=== PATIENT | male | born 1975 | race Caucasian/White ===

== ENCOUNTER 2022-12-13 09:28 | Outpatient (REF) | payer OTHER, SELFPAY ==
[2022-12-13 09:44] LABS: MANUAL DIFF FLAG NO
[2022-12-13 09:56] LABS: Basophils Percent Auto 0.7 % (0-2); Eosinophils Absolute Auto 0.1 X10*3/uL (0.0-0.4); Eosinophils Percent Auto 2.7 % (0-4); Hematocrit 47.3 % (42.0-52.0); Hemoglobin 15.7 g/dl (14.0-18.0); Imm Gran Abs Auto 0.02 X10*3/uL (0.00-0.03); Imm Gran Pct Auto 0.5 % (0.0-0.4); Lymphocytes Absolute Auto 1.3 X10*3/uL (1.2-4.9); Mean Corpuscular HGB Conc 33.2 g/dl (31.0-36.0); Mean Corpuscular Hemoglobin 26.7 pg (27.0-33.0); Mean Corpuscular Volume 80.3 fL (80.0-98.0); Mean Platelet Volume 10.7 fL (9.4-12.4); Monocytes Absolute Auto 0.5 X10*3/uL (0.1-1.2); Monocytes Percent Auto 12.1 % (2-11); Neutrophils Absolute Auto 2.2 x10*3/uL (2.0-8.3); Platelet Count 240 X10*3/uL (160-400); Red Blood Count 5.89 X10*6/uL (4.60-5.80); Red Cell Distribution Width 13.3 % (11.0-16.0); White Blood Count 4.1 X10*3/uL (4.8-10.8)
[2022-12-13 10:20] LABS: Estimated Average Glucose 117 mg/dL; Hemoglobin A1C 152.1611 umol/L; Hemoglobin A1c % 5.7 %
[2022-12-13 10:54] LABS: Alanine Aminotransferase 66 U/L (0-40); Albumin Level 4.2 g/dL (3.5-5.0); Alkaline Phosphatase 91 U/L (39-117); Anion Gap 12 (12-20); Aspartate Amino Transferase 41 U/L (5-37); Bilirubin Total 1.1 mg/dL (0.0-1.0); Blood Urea Nitrogen 11 mg/dL (9-16); Calcium 8.4 mg/dL (8.4-10.2); Carbon Dioxide 26 mmol/L (22-29); Chloride 107 mmol/L (96-108); Cholesterol 197 mg/dL; Estimated Glomerular Filt Rate > 60; Glucose Random 114 mg/dL (60-115); HDL Cholesterol 41 mg/dL; LDL Cholesterol Calculated 137 mg/dl; Potassium 4.5 mmol/L (3.3-5.1); Sodium 140 mmol/L (135-145); Triglycerides 98 mg/dL
[2022-12-13 11:23] LABS: Folate 10.3 ng/mL (> or = 4.0); Free T4 (Free Thyroxine) 0.87 ng/dL (0.71-1.85); Thyroid Stimulating Hormone 1.51 uIU/mL (0.32-4.0); Vitamin B12 445 pg/mL (200-900)
[2022-12-14 18:28] LABS: Lyme Abs Screen <0.90 index
== END 2022-12-13 09:29 | disposition home or self-care (01) ==
LOC: HO.LAB 09:28
PROVIDERS: PCP Internal Medicine; Visit Provider Internal Medicine
DX: E66.01 Morbid (severe) obesity due to excess calories (principal); E78.00 Pure hypercholesterolemia, unspecified; Z86.19 Personal history of other infectious and parasitic diseases; E55.9 Vitamin D deficiency, unspecified
CPT/HCPCS: 36415; 80053; 80061; 82306; 82607; 82746; 83036; 84439; 84443; 85025; 86617; 86618

== ENCOUNTER 2024-05-29 11:23 | Outpatient (AMB) | payer OTHER, SELFPAY ==
[2024-05-29 11:27] VITALS: BP 148/98; PULSE 84; O2SAT 98; BMI 42.6
--- NOTE | 2024-05-29 11:27 | A.OFFPC_ITS ---
Vital Signs 05/29/24 11:27 Height 5 ft 10 in Weight 297 lb BMI 42.6 BP 148/98 H Blood Pressure Location Lt brachial Position Sitting Pulse 84 Pulse Source Pulse Oximeter Pulse Oximetry (%) 98 Oxygen Delivery Method Room Air Intake Visit Reasons: Annual PE Allergies No Known Allergies Allergy (Verified 05/29/24 11:28) Medication List - Last Reconciled 05/29/24 by Cristobal Mcconnell MD blood pressure monitor (Blood Pressure Kit) As directed Tobacco use date assessed: 05/29/24 Dental Screening Dental Screen Date: 05/29/24 Did you have a dental visit in the last 12 months?: Yes Did you have a dental problem in the last 6 months where you did not have access to dental care?: No Was dental information given to patient?: Patient has dentist HPI Annual PE HPI Details 48-year-old morbidly obese male coming i n for physical exam at that t [facility] in December last year had an elevated blood pressure. Patient is here for physical exam [facility] Medical History (Updated 05/29/24 @ 12:09 by Cristobal Mcconnell MD) Morbid obesity Surgical History (Updated 07/31/20 @ 12:18 by Rasheead Kim) History of eye surgery Family History (Updated 12/02/22 @ 10:53 by Kate Castorena [facility]) Father No problems noted. Mother Diabetes Maternal Grandfather Diabetes Sister No problems noted. Sister No problems noted. Brother No problems noted. Son No problems noted. Daughter No problems noted. Other Substance abuse Social History (Updated 12/02/22 @ 10:47 by Cristobal Mcconnell MD) Housing: House Alcohol intake: never Patient Tobacco Use Status: Former Tobacco user Tobacco use type: Cigarette Years Smoked: 16 years old for 4 years e-Cigarette/Vaping Use: Never Used Second Hand Smoke Exposure: No service: No Current occupational status: employed Current occupational exposures/hazards: No Cognitive needs: No Hearing needs: No Vision needs: Yes Questionnaire PHQ-9 Over the last 2 weeks, how often have you been bothered by any of the following problems? 1. Little interest or pleasure in doing things: not at all 2. Feeling down, depressed, or hopeless: not at all 3. Trouble falling or staying asleep, or sleeping too much: not at all 4. Feeling tired or having little energy: not at all 5. Poor appetite or overeating: not at all 6. Feeling bad about yourself - or that you are a failure or have let yourself or your family down: not at all 7. Trouble concentrating on things, such as reading the newspaper or watching television: not at all 8. Moving or speaking so slowly that other people could have noticed. Or the opposite - being so fidgety or restless that you have been moving around a lot more than usual: not at all Depression Screening Interpretation: Negative Depression Screening Done: Yes 93480 - PHQ-9 Billing: Yes Source: Developed by Drs. Elio Noble, Larisa Cao, Jerad Youssef and colleagues, with an educational melida from [employer]. Thrive Questionnaire Date Thrive assessed: 05/29/24 I am a: Patient What is your living situation today?: I have a steady place to live Within the past 12 months, did the food you bought not last and you didn't have the money to get more?: Never true Within the past 12 months, did you worry whether your food would run out before you got money to buy more?: Never true Do you have trouble paying for medicines?: No Do you have trouble getting transportation to medical appointments?: No Do you have trouble paying your heating and electricity bill?: No Do you have trouble taking care of your child, family member or friend?: No Do you have trouble with day-to-day activities such as bathing, preparing meals, shopping, managing finances, etc.?: No Are you currently unemployed and looking for a job?: No Are you interested in more education?: No Currently or been in a relationship where the following occur: No concerns reported THRIVE Score: 0 AUDIT C Alcohol Use Questionnaire (AUDIT-C) 1. How often do you have a drink containing alcohol?: Never 3. How often do you have six or more drinks on one occasion?: Never Total Score: 0 ANJALI-7 AMB Questionnaire ANJALI-7 Date ANJALI - 7 assessed: 05/29/24 Feeling nervous, anxious, or on edge: 1 = Several days Not being able to stop or control worryin = Several days Worrying too much about different things: 1 = Several days Trouble relaxin = Several days Being so restless that it is hard to sit still: 1 = Several days Becoming easily annoyed or irritable: 1 = Several days Feeling afraid as if something awful might happen: 1 = Several days Total ANJALI-7 score (0-4 normal; 5-9 mild; 10-14 moderate; 15-21 severe): 7 Source: Developed by Drs. Elio Noble, Larisa Cao, Jerad Youssef and colleagues, with an educational melida from [employer]. ANJALI-7 Assessment Billing ANJALI-7 Assessment Tool: ANJALI-7 Assessment 86240 Review of Systems Const Denies poor appetite and Denies weakness Eyes Denies no additional complaints ENT Reports Normal hearing present, Denies dizziness, Denies nasal congestion, Denies tinnitus and Denies sore throat Card Denies chest pain, Denies syncope, Denies rapid heart rate and Denies dyspnea Resp Denies cough and Denies dyspnea GI Denies change in stool character, Reports constipation, Denies diarrhea, Denies nausea and Denies vomiting Denies dysuria and Denies urinary frequency Neuro Reports Normal hearing present, Denies confusion, Denies dizziness, Denies syncope and Denies weakness Psych Denies confusion Physical exam (Primary Care) Vital Signs: Last Vital Signs Pulse 84 05/29/24 11:27 BP 148/98 H 05/29/24 11:27 Pulse Ox 98 05/29/24 11:27 Oxygen Delivery Method Room Air 05/29/24 11:27 BMI result Body Mass Index 42.6 Tobacco/Smoking Status: Tobacco use Status Tobacco use date assessed 05/29/24 05/29/24 11:34 Patient Tobacco Use Status Former Tobacco user 05/29/24 11:34 Tobacco use type Cigarette 05/29/24 11:34 e-Cigarette/Vaping Use Never Used 05/29/24 11:34 Depression Screening Interpretation: Negative Thrive Assessment: Date of Thrive Assessment Date Thrive assessed 05/29/24 05/29/24 11:34 Currently or been in a relationship where the following occur: No concerns reported Const General: No confusion Orientation/consciousness: No confusion HENMT Head: Yes normocephalic Ears: external ears normal and TM's normal bilaterally Face and sinus: Yes normal facial exam Mouth: moist mucous membranes Throat: Yes tonsils normal Eyes Conjunctivae: conjunctivae normal Pupils: Equal, round and reactive pupils present and Pupil accommodation reflex normal Direct Ophthalmoscopy: normal light reflex Neck Neck: No lymphadenopathy Thyroid: Thyroid normal Chest Chest palpation & inspection: normal inspection of the chest Resp Effort & Inspection: normal respiratory effort and no audible wheezes Auscultation: clear to auscultation bilaterally, no crackles, no wheezes and lung sounds not diminished Cardio Rate: regular rate Rhythm: regular rhythm Peripheral pulses: radial pulses present and dorsalis pedis present GI Palpation (GI): no masses Auscultation: normal bowel sounds and normoactive bowel sounds Rectal Exam - Male: Yes deferred Skin General skin exam: no rashes or lesions noted Rashes: no rashes Neuro General: No confusion Cranial nerves: Yes Equal, round and reactive pupils present and Yes Normal hearing present Cognition (Neuro): normal cognition Gait exam (Neuro): Normal gait present Motor exam (neuro): 5/5 motor strength present throughout Deep tendon reflexes (DTR's): Right brachioradialis reflex intensity grade: 2+, Left brachioradialis reflex intensity grade: 2+, Right patellar reflex intensity grade: 2+ and Left patellar reflex intensity grade: 2+ Extrem General: No edema Assessment and Plan Assessment & Plan (1) Annual physical exam: Code(s): Z00.00 - Encounter for general adult medical examination without abnormal findings Plan: Patient is advised to eat healthy, keep well hydrated, keep active and have adequate sleep. (2) LFT elevation: Code(s): R79.89 - Other specified abnormal findings of blood chemistry Plan: Will have to repeat the test with ultrasound of the abdomen (3) Impaired glucose tolerance: Code(s): R73.02 - Impaired glucose tolerance (oral) Plan: Decrease the amount of carbohydrate intake, pasta, bread, rice and potatoes are all sugar and that is aside from all the sweet stuff, remember that fruits are good but they are Sweet also. (4) Morbid obesity: Code(s): E66.01 - Morbid (severe) obesity due to excess calories Plan: Diet and exercise (5) Colon cancer screening: Code(s): Z12.11 - Encounter for screening for malignant neoplasm of colon Plan: Reminded about colonoscopy (6) Hypercholesterolemia: Code(s): E78.00 - Pure hypercholesterolemia, unspecified (7) Colonoscopy refused: Code(s): Z53.20 - Procedure and treatment not carried out because of patient's decision for unspecified reasons Orders: Orders Complete Blood Count Auto Diff Today R73.02 - Impaired glucose tolerance (oral) Lipid Panel Today E78.00 - Pure hypercholesterolemia, unspecified, R73.02 - Impaired glucose tolerance (oral) Vitamin B12 and Folate Today R73.02 - Impaired glucose tolerance (oral) US abdomen complete Today R73.02 - Impaired glucose tolerance (oral), R79.89 - Other specified abnormal findings of blood chemistry Hemoglobin A1c Today R73.02 - Impaired glucose tolerance (oral) Comprehensive Met. Panel Today R73.02 - Impaired glucose tolerance (oral) Thyroid Stimulating Hormone Today R73.02 - Impaired glucose tolerance (oral) Free T4 (Free Thyroxine) Today R73.02 - Impaired glucose tolerance (oral) Hepatitis B,C Profile Today R73.02 - Impaired glucose tolerance (oral), R79.89 - Other specified abnormal findings of blood chemistry Referrals Cologuard Test Z12.11 - Encounter for screening for malignant neoplasm of colon, Z12.12 - Encounter for screening for malignant neoplasm of rectum Coding Level of Care Code Est Pt Prev Care 40-64y(98840) Diagnoses Annual physical exam Z00.00 LFT elevation R79.89 Impaired glucose tolerance R73.02 Morbid obesity E66.01 Colon cancer screening Z12.11 Hypercholesterolemia E78.00 Colonoscopy refused Z53.20 Additional Codes ANJALI-7 Assessment Billing - ANJALI-7 Assessment Tool: ANJALI-7 Assessment [id number] ([id number])
== END 2024-05-29 12:28 | disposition home or self-care (01) ==
PROVIDERS: PCP Internal Medicine; Visit Provider Internal Medicine
DX: Z00.00 Encounter for general adult medical examination without abnormal findings (principal); E66.01 Morbid (severe) obesity due to excess calories; Z68.41 Body mass index [BMI] 40.0-44.9, adult; R79.89 Other specified abnormal findings of blood chemistry; R73.02 Impaired glucose tolerance (oral); Z12.11 Encounter for screening for malignant neoplasm of colon; E78.00 Pure hypercholesterolemia, unspecified; Z53.20 Procedure and treatment not carried out because of patient's decision for unspecified reasons
CPT/HCPCS: 99396

== ENCOUNTER 2024-12-28 10:20 | Outpatient (AMB) | payer OTHER, SELFPAY ==
[2024-12-28 10:23] VITALS: PULSE 80; TEMP 36.1; O2SAT 96; BMI 40.2
--- NOTE | 2024-12-28 10:23 | A.OFFPC_ITS ---
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 Ultrasound Technol Required: No Accompanied by: Self / Same As Patient Allergies No Known Allergies Allergy (Verified 12/28/24 10:30) Medication List - Last Reconciled 12/28/24 by Cristobal Mcconnell MD blood pressure monitor (Blood Pressure Kit) As directed Tobacco use date assessed: 12/28/24 Dental Screening Dental Screen Date: 12/28/24 Did you have a dental visit in the last 12 months?: Yes Did you have a dental problem in the last 6 months where you did not have access to dental care?: No Was dental information given to patient?: Patient has dentist HPI DOT/SLEEP STUDY REQUEST HPI Details DEny sleepy while driving, deny sleeping while watching tv, deny after meal sleepy, deny sleeping in the car, deny afternoon sleeping. [facility] Medical History (Updated 12/27/24 @ 16:04 by Cristobal Mcconnell MD) Morbid obesity Surgical History History of eye surgery Family History Father No problems noted. Mother Diabetes Maternal Grandfather Diabetes Sister No problems noted. Sister No problems noted. Brother No problems noted. Son No problems noted. Daughter No problems noted. Other Substance abuse Social History Housing: House Alcohol intake: never Patient Tobacco Use Status: Former Tobacco user Tobacco use type: Cigarette Years Smoked: 16 years old for 4 years e-Cigarette/Vaping Use: Never Used Second Hand Smoke Exposure: No service: No Current occupational status: employed Current occupational exposures/hazards: No Cognitive needs: No Hearing needs: No Vision needs: Yes Questionnaire PHQ-9 Over the last 2 weeks, how often have you been bothered by any of the following problems? 1. Little interest or pleasure in doing things: not at all 2. Feeling down, depressed, or hopeless: not at all 3. Trouble falling or staying asleep, or sleeping too much: not at all 4. Feeling tired or having little energy: not at all 5. Poor appetite or overeating: not at all 6. Feeling bad about yourself - or that you are a failure or have let yourself or your family down: not at all 7. Trouble concentrating on things, such as reading the newspaper or watching television: not at all 8. Moving or speaking so slowly that other people could have noticed. Or the opposite - being so fidgety or restless that you have been moving around a lot more than usual: not at all Depression Screening Interpretation: Negative Depression Screening Done: Yes 03582 - PHQ-9 Billing: Yes Source: Developed by Drs. Elio Noble, Larisa Cao, Jerad Youssef and colleagues, with an educational melida from [employer]. Thrive Questionnaire Date Thrive assessed: 12/28/24 I am a: Patient What is your living situation today?: I have a steady place to live Within the past 12 months, did the food you bought not last and you didn't have the money to get more?: Never true Within the past 12 months, did you worry whether your food would run out before you got money to buy more?: Never true Do you have trouble paying for medicines?: No Do you have trouble getting transportation to medical appointments?: No Do you have trouble paying your heating and electricity bill?: No Do you have trouble taking care of your child, family member or friend?: No Do you have trouble with day-to-day activities such as bathing, preparing meals, shopping, managing finances, etc.?: No Are you currently unemployed and looking for a job?: No Are you interested in more education?: No Currently or been in a relationship where the following occur: No concerns reported THRIVE Score: 0 AUDIT C Alcohol Use Questionnaire (AUDIT-C) 1. How often do you have a drink containing alcohol?: Monthly or less 2. How many drinks containing alcohol do you have on a typical day when you are drinking?: 1 or 2 3. How often do you have six or more drinks on one occasion?: Never Total Score: 1 ANJALI-7 AMB Questionnaire ANJALI-7 Date ANJALI - 7 assessed: 12/28/24 Feeling nervous, anxious, or on edge: 0 = Not at all Not being able to stop or control worryin = Not at all Worrying too much about different things: 0 = Not at all Trouble relaxin = Not at all Being so restless that it is hard to sit still: 0 = Not at all Becoming easily annoyed or irritable: 0 = Not at all Feeling afraid as if something awful might happen: 0 = Not at all Total ANJALI-7 score (0-4 normal; 5-9 mild; 10-14 moderate; 15-21 severe): 0 Source: Developed by Drs. Elio Noble, Larisa Cao, Jerad Youssef and colleagues, with an educational melida from [employer]. ANJALI-7 Assessment Billing ANJALI-7 Assessment Tool: ANJALI-7 Assessment 07817 Physical exam (Primary Care) Vital Signs: Last Vital Signs Temp 97 F 12/28/24 10:23 Pulse 80 12/28/24 10:23 Pulse Ox 96 12/28/24 10:23 Oxygen Delivery Method Room Air 12/28/24 10:23 BMI result Body Mass Index 40.2 Tobacco/Smoking Status: Tobacco use Status Tobacco use date assessed 12/28/24 12/28/24 10:33 Patient Tobacco Use Status Former Tobacco user 12/28/24 10:33 Tobacco use type Cigarette 12/28/24 10:33 e-Cigarette/Vaping Use Never Used 12/28/24 10:33 Depression Screening Interpretation: Negative Thrive Assessment: Date of Thrive Assessment Date Thrive assessed 12/28/24 12/28/24 10:33 Currently or been in a relationship where the following occur: No concerns reported Const General: alert; No acute distress Eyes Conjunctivae: conjunctivae normal Resp Auscultation: clear to auscultation bilaterally Cardio Rate: regular rate Rhythm: regular rhythm GI Inspection: Yes normal to inspection Extrem General: Yes normal to inspection and No edema Coding Level of Care Code Est Pt Level 4 (86694) Complex EM visit Add On G2211 Diagnoses Impaired glucose tolerance R73.02 Hypercholesterolemia E78.00 LFT elevation R79.89 Morbid obesity E66.01 Hypersomnia G47.10 Additional Codes ANJALI-7 Assessment Billing - ANJALI-7 Assessment Tool: ANJALI-7 Assessment 25854 ([id number]) PHQ-9 - 73325 - PHQ-9 Billing: Yes ([id number]) Assessment & Plan Assessment & Plan (1) Impaired glucose tolerance: Code(s): R73.02 - Impaired glucose tolerance (oral) Category: Medical Plan: Decrease the amount of carbohydrate intake, pasta, bread, rice and potatoes are all sugar and that is aside from all the sweet stuff, remember that fruits are good but they are Sweet also. (2) Hypercholesterolemia: Code(s): E78.00 - Pure hypercholesterolemia, unspecified Category: Medical Plan: Avoid fried foods, chicken skin, eggs, butter margarine, pastries and meat. Be it pork or beef they have a lot of cholesterol LDL goal of less than 130 and triglyceride of less than 150 (3) LFT elevation: Code(s): R79.89 - Other specified abnormal findings of blood chemistry Category: Medical Plan: Patient is advised to repeat the blood work as well as an ultrasound of the abdomen (4) Morbid obesity: Code(s): E66.01 - Morbid (severe) obesity due to excess calories Category: Medical Plan: Diet and exercise (5) Hypersomnia: Code(s): G47.10 - Hypersomnia, unspecified Category: Medical Plan: Requested sleep study Plan History of Present Illness The patient is a 49-year-old male presenting with elevated hemoglobin A1c and hypercholesterolemia. He had a recent physical examination in May 2024, where his hemoglobin A1c was noted to be 5.7%, indicative of pre-diabetes. The patient's glucose levels have been of concern over the years, with a prior recorded value of 114 mg/dL. A recent weight loss of 17 pounds has occurred. In addition to glucose intolerance, the patient exhibits hypercholesterolemia with an LDL level of 137 mg/dL, above the desired therapeutic target. The patient's previous laboratory values indicated liver enzyme elevation, with specific values reported as 66 and 41. This finding requires further exploration, including consideration for a hepatitis profile and abdominal imagi ng. The patient also reports vitamin D deficiency. A possible sleep disorder, primarily obstructive sleep apnea, has been suggested given an increased neck circumference, although he reports no significant symptoms of sleep apnea during regular activities or after meals. Health Maintenance - Repeat blood work recommended for glucose and lipid profile. - Abdominal ultrasound advised for liver assessment. - Screening recommendations include pursuing a colonoscopy, which the patient declined. - Diet and exercise modifications emphasized for cholesterol and blood glucose management. - Emphasis on avoiding caffeine before fasting glucose testing. - Referral for sleep study based on occupational requirements and neck circumference. - Vitamin D supplementation due to deficiency. 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 - Reports physical activity is limited to daily tasks. - Nutrition discussions focused on maintaining weight loss and diet modifications for blood sugar and cholesterol control. Review of Systems - General: Denies excessive fatigue. - Neurological: Denies excessive daytime sleepiness or napping beyond normal routines. Physical Exam Results - Labs: Hemoglobin A1c calculated at 5.7%. LDL recorded at 137 mg/dL. Liver enzymes noted as 66 and 41. - Ultrasound: Recommended but not completed. - Sleep Study: Planned but not completed. Plan We will manage the patient's pre-diabetes with lifestyle modifications focused on diet and exercise, and monitor cholesterol levels. Repeat blood tests will assess glucose, cholesterol, and liver enzyme levels. An abdominal ultrasound and hepatitis profile will be performed for elevated liver enzymes. Vitamin D supplementation is recommended. A sleep study is scheduled due to neck size concerns and occupational requirements. Although colonoscopy was suggested, the patient declined. Compliance with the sleep study is critical due to potential sleep apnea implications on cardiovascular health. Patient was informed and verbally consented to the use of an ambient scribe for clinic note documentation during this visit. Discussion Notes During this visit, I discussed the implications of elevated hemoglobin A1c, indicating pre-diabetes, and the elevated LDL levels related to hypercholesterolemia. We addressed the management options, including dietary changes and exercise, to aid in achieving LDL and glucose targets. I explained the need for repeat blood work and the importance of assessing liver function given the current elevated levels. I urged the patient to comply with recommended tests, particularly the sleep study, emphasizing its impact on heart health if obstructive sleep apnea is diagnosed. There's been a review of vitamin D supplementation due to deficiency. The discussions also touched upon colonoscopy, and the patient's decision to decline was respected, yet the option for an at-home stool test was highlighted. Patient Instructions - Schedule and complete the blood work as advised. - Follow recommendations for the abdominal ultrasound and hepatitis profile. - Begin or continue vitamin D supplementation. - Maintain weight loss efforts and adhere to dietary measures for blood sugar and cholesterol management. - Consider limiting caffeine intake before testing glucose levels. - Undergo the sleep study as planned due to occupational needs. - Consider alternative screening for colon cancer if colonoscopy is declined, such as completing a fecal occult blood test. Orders: Orders US abdomen complete Today R73.02 - Impaired glucose tolerance (oral), R79.89 - Other specified abnormal findings of blood chemistry
== END 2024-12-28 11:11 | disposition home or self-care (01) ==
LOC: HO.HMCH 10:21
PROVIDERS: PCP Internal Medicine; Visit Provider Internal Medicine
DX: R73.02 Impaired glucose tolerance (oral) (principal); E66.01 Morbid (severe) obesity due to excess calories; Z68.41 Body mass index [BMI] 40.0-44.9, adult; E78.00 Pure hypercholesterolemia, unspecified; R79.89 Other specified abnormal findings of blood chemistry; G47.10 Hypersomnia, unspecified

== ENCOUNTER → 2024-12-28 10:20 | Outpatient (BNVA) | payer OTHER, SELFPAY | PROVIDERS: PCP Internal Medicine; Visit Provider Internal Medicine | DX: R73.02 Impaired glucose tolerance (oral) (principal); E78.00 Pure hypercholesterolemia, unspecified; R79.89 Other specified abnormal findings of blood chemistry; E66.01 Morbid (severe) obesity due to excess calories; Z68.41 Body mass index [BMI] 40.0-44.9, adult; G47.10 Hypersomnia, unspecified | CPT/HCPCS: 96127 ==

== ENCOUNTER 2025-01-15 09:56 | Outpatient (REF) | payer OTHER, SELFPAY ==
--- NOTE | ~2025-01-15 | US_ITS ---
CLINICAL HISTORY: R79.89 - Other specified abnormal findings of blood chemistry US abdomen complete Comparison: None Findings: Limited visualization of the pancreas secondary to overlying bowel gas. The visualized aorta and IVC are unremarkable. The liver measures 18 cm in length. Liver parenchyma is hyperechoic. No focal liver lesion. There is no intrahepatic bile duct dilatation. The common duct is 3.7 mm in diameter. The gallbladder is normal. There is no sonographic Garcia sign. The main portal vein is antegrade. The right kidney is 12.0 cm in length. The left kidney is 11.4 cm in length. There is a 2.1 cm cyst within the midportion of the left kidney. The spleen is normal. No ascites. IMPRESSION: Mild hepatomegaly with fatty infiltration of the liver. This document has been electronically signed by: Radha Aiken MD on 01/16/2025 15:38:14
== END 2025-01-15 09:57 | disposition home or self-care (01) ==
LOC: HO.HMGCX 09:56
PROVIDERS: PCP Internal Medicine; Visit Provider Internal Medicine
DX: R79.89 Other specified abnormal findings of blood chemistry (principal); R73.02 Impaired glucose tolerance (oral)
CPT/HCPCS: 76700

== ENCOUNTER → 2025-01-15 10:10 | Outpatient (BNV) | payer OTHER, SELFPAY | PROVIDERS: PCP Internal Medicine; Visit Provider Radiology Diagnostic Radiology | DX: R79.89 Other specified abnormal findings of blood chemistry (principal) | CPT/HCPCS: 76700 ==

== ENCOUNTER → 2025-02-28 10:28 | Outpatient (REF) | payer OTHER, SELFPAY ==
[2025-02-28 10:49] LABS: MANUAL DIFF FLAG NO
--- OUTSIDE RECORDS SUMMARY | 2025-02-28 10:53 | XMS_ITS | Encounter Summary ---
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 - Main Lab [address] [facility] [place] [address] Elio Leos, SERGEY [address] [place] [phone] Granuloma and granuloma-like lesions of oral mucosa Social History Tobacco Use Types Packs/Day Years Used Date Smoking Tobacco: Never Assessed Sex and Gender Information Value Date Recorded Sex Assigned at Not on file Legal Sex Male 11:53 AM EDT Gender Identity Not on file Sexual Orientation Not on file documented as of this encounter Plan of Treatment Not on file documented as of this encounter Procedures Procedure Name Priority Date/Time Associated Diagnosis Comments TISSUE EXAM Routine 02/18/2025 Granuloma and granuloma-like lesions of oral mucosa documented in this encounter Results * Tissue Exam (02/18/2025) Final Diagnosis Oral Cavity, tooth #32-biopsy: -INFLAMED SQUAMOUS LINED CYST COMMENT: The features could be consistent with a periapical (radicular) cyst. There is no evidence of odontogenic keratocyst. There is no evidence of ameloblastoma. Recommend clinical correlation. 02/20/2025 10:21 AM EDT [facility] Clinical Information Pathology tooth #32 Radiolucent lesion associated with impacted tooth #32 Periapical granuloma Cyst #32 per jar 02/20/2025 10:21 AM EDT [facility] Gross Description A. Oral Cavity, cyst tooth #32: Labeled cyst #32 . Received in formalin is a 1.3 x 1.1 x 0.3 cm aggregate of irregular friable todd-brown granular soft tissue fragments which is wrapped in paper and submitted in toto in one cassette, multiple pieces, multiple levels on one slide. MARION 02/20/2025 10:21 AM EDT [facility] Disclaimer Unless otherwise specified, all tissue is 10% NB formalin fixed and paraffin embedded. 02/20/2025 10:21 AM EDT [facility] Tissue Oral cavity structure / Unknown 02/18/2025 02/19/2025 11:59 AM EDT Elio Leos DDS LAB PATHOLOGY ORDERABLES Final Result [facility] [address] [place] [address], documented in this encounter Visit Diagnoses Diagnosis Granuloma and granuloma-like lesions of oral mucosa documented in this encounter
[2025-02-28 11:26] LABS: Basophils Percent Auto 0.8 % (0-2); Eosinophils Absolute Auto 0.1 X10*3/uL (0.0-0.4); Eosinophils Percent Auto 2.1 % (0-4); Hematocrit 44.5 % (42.0-52.0); Hemoglobin 14.7 g/dl (14.0-18.0); Imm Gran Abs Auto 0.02 X10*3/uL (0.00-0.03); Imm Gran Pct Auto 0.4 % (0.0-0.4); Lymphocytes Absolute Auto 1.6 X10*3/uL (1.2-4.9); Lymphocytes Percent Auto 29.9 % (20-40); Mean Corpuscular Hemoglobin 27.1 pg (27.0-33.0); Mean Corpuscular Volume 82.1 fL (80.0-98.0); Mean Platelet Volume 10.8 fL (9.4-12.4); Monocytes Absolute Auto 0.4 X10*3/uL (0.1-1.2); Monocytes Percent Auto 7.4 % (2-11); Neutrophils Absolute Auto 3.1 x10*3/uL (2.0-8.3); Neutrophils Percent Auto 59.4 % (45-73); Platelet Count 282 X10*3/uL (160-400); Red Blood Count 5.42 X10*6/uL (4.60-5.80); White Blood Count 5.3 X10*3/uL (4.8-10.8)
[2025-02-28 11:38] LABS: Estimated Average Glucose 108 mg/dL; Hemoglobin A1C 136.5137 umol/L; Hemoglobin A1c % 5.4 % (<6.0)
[2025-02-28 12:22] LABS: Alanine Aminotransferase 37 U/L (0-40); Albumin Level 4.2 g/dL (3.5-5.0); Alkaline Phosphatase 81 U/L (39-117); Anion Gap 11 (12-20); Aspartate Amino Transferase 29 U/L (5-37); Bilirubin Total 0.7 mg/dL (0.0-1.0); Blood Urea Nitrogen 17 mg/dL (9-16); Calcium 9.1 mg/dL (8.4-10.2); Carbon Dioxide 27 mmol/L (22-29); Chloride 106 mmol/L (96-108); Cholesterol 196 mg/dL (<200); Estimated Glomerular Filt Rate > 60; Glucose Random 97 mg/dL (60-115); HDL Cholesterol 41 mg/dL (>40); LDL Cholesterol Calculated 118 mg/dL (<100); Potassium 4.3 mmol/L (3.3-5.1); Sodium 140 mmol/L (135-145); Total Protein 7.2 g/dL (6.5-8.0); Triglycerides 186 mg/dL (<150)
[2025-02-28 12:30] LABS: Free T4 (Free Thyroxine) 0.93 ng/dL (0.71-1.85); HBc Num1 0.06 S/CO (0.00-0.79); HBsAGNum1 0.32 S/CO (0.00-0.99); Hepatitis B Core Antibody Nonreactive (Nonreactive); Hepatitis B Surface Antigen Negative (Negative); Thyroid Stimulating Hormone 1.38 uIU/mL (0.32-4.0); ~HepC Num1 0.24 S/CO (0.00-0.79); ~Hepatitis B Surface Antibody NONREACTIVE (Nonreactive); ~Hepatitis C Antibody Nonreactive (Nonreactive)
[2025-02-28 12:40] LABS: Folate 8.3 ng/mL (> or = 4.0); Vitamin B12 359 pg/mL (200-900)
== END ==
LOC: HO.SL 10:28
PROVIDERS: PCP Internal Medicine; Visit Provider Internal Medicine
DX: G47.10 Hypersomnia, unspecified (principal); R73.02 Impaired glucose tolerance (oral); E78.00 Pure hypercholesterolemia, unspecified; R79.89 Other specified abnormal findings of blood chemistry
CPT/HCPCS: 36415; 80053; 80061; 82607; 82746; 83036; 84439; 84443; 85025; 86704; 86706; 86803; 87340; 95806

== ENCOUNTER 2025-03-26 10:59 | Outpatient (AMB) | payer OTHER, SELFPAY ==
[2025-03-26 11:02] VITALS: BP 136/102; PULSE 57; O2SAT 98; BMI 39.7
--- NOTE | 2025-03-26 11:02 | MHC.PC.OV ---
Vital Signs 03/26/25 11:02 Height 5 ft 10 in Weight 276 lb 8 oz BMI 39.7 BP 136/102 H Blood Pressure Location Lt brachial Position Sitting Pulse 57 Pulse Source Pulse Oximeter Pulse Oximetry (%) 98 Oxygen Delivery Method Room Air Intake Visit Reasons: IGT, Hypercholesterol, obesity Hospice Spiritual Care Coordinator Required: No Accompanied by: Self / Same As Patient Allergies No Known Allergies Allergy (Verified 03/26/25 11:02) Tobacco use date assessed: 03/26/25 Dental Screening Dental Screen Date: 03/26/25 Did you have a dental visit in the last 12 months?: Yes Did you have a dental problem in the last 6 months where you did not have access to dental care?: No Was dental information given to patient?: Patient has dentist [facility] Medical History (Updated 03/26/25 @ 11:10 by Cristobal Mcconnell MD) Morbid obesity LFT elevation Surgical History History of eye surgery Family History Father No problems noted. Mother Diabetes Maternal Grandfather Diabetes Sister No problems noted. Sister No problems noted. Brother No problems noted. Son No problems noted. Daughter No problems noted. Other Substance abuse Social History Housing: House Alcohol intake: never Patient Tobacco Use Status: Former Tobacco user Tobacco use type: Cigarette Years Smoked: 16 years old for 4 years e-Cigarette/Vaping Use: Never Used Second Hand Smoke Exposure: No service: No Current occupational status: employed Current occupational exposures/hazards: No Cognitive needs: No Hearing needs: No Vision needs: Yes Questionnaire PHQ-9 Over the last 2 weeks, how often have you been bothered by any of the following problems? 1. Little interest or pleasure in doing things: several days 2. Feeling down, depressed, or hopeless: not at all 3. Trouble falling or staying asleep, or sleeping too much: not at all 4. Feeling tired or having little energy: not at all 5. Poor appetite or overeating: not at all 6. Feeling bad about yourself - or that you are a failure or have let yourself or your family down: not at all 7. Trouble concentrating on things, such as reading the newspaper or watching television: not at all 8. Moving or speaking so slowly that other people could have noticed. Or the opposite - being so fidgety or restless that you have been moving around a lot more than usual: not at all 9. Thoughts that you would be better off or of hurting yourself in some way: not at all Total score: 1 Source: Developed by Drs. Elio Noble, Larisa Cao, Jerad Youssef and colleagues, with an educational melida from [employer]. Thrive Questionnaire Date Thrive assessed: 03/26/25 I am a: Patient What is your living situation today?: I have a steady place to live Within the past 12 months, did the food you bought not last and you didn't have the money to get more?: Never true Within the past 12 months, did you worry whether your food would run out before you got money to buy more?: Never true Do you have trouble paying for medicines?: No Do you have trouble getting transportation to medical appointments?: No Do you have trouble paying your heating and electricity bill?: No Do you have trouble taking care of your child, family member or friend?: No Do you have trouble with day-to-day activities such as bathing, preparing meals, shopping, managing finances, etc.?: No Are you currently unemployed and looking for a job?: No Are you interested in more education?: Yes Please select the resources that you would like help with: None Currently or been in a relationship where the following occur: No concerns reported THRIVE Score: 0 AUDIT C Alcohol Use Questionnaire (AUDIT-C) 1. How often do you have a drink containing alcohol?: Never 3. How often do you have six or more drinks on one occasion?: Never Total Score: 0 ANJALI-7 AMB Questionnaire ANJALI-7 Date ANJALI - 7 assessed: 03/26/25 Feeling nervous, anxious, or on edge: 0 = Not at all Not being able to stop or control worryin = Not at all Worrying too much about different things: 0 = Not at all Trouble relaxin = Not at all Being so restless that it is hard to sit still: 0 = Not at all Becoming easily annoyed or irritable: 0 = Not at all Feeling afraid as if something awful might happen: 0 = Not at all Total ANJALI-7 score (0-4 normal; 5-9 mild; 10-14 moderate; 15-21 severe): 0 Source: Developed by Drs. Elio Noble, Larisa Cao, Jerad Youssef and colleagues, with an educational melida from [employer]. Physical exam (Primary Care) Vital Signs: Last Vital Signs Pulse 57 03/26/25 11:02 BP 136/102 H 03/26/25 11:02 Pulse Ox 98 03/26/25 11:02 Oxygen Delivery Method Room Air 03/26/25 11:02 BMI result Body Mass Index 39.7 Tobacco/Smoking Status: Tobacco use Status Tobacco use date assessed 03/26/25 03/26/25 11:04 Patient Tobacco Use Status Former Tobacco user 03/26/25 11:04 Tobacco use type Cigarette 03/26/25 11:04 e-Cigarette/Vaping Use Never Used 03/26/25 11:04 PHQ-9: PHQ-9 Score PHQ-9: Total score 1 03/26/25 11:11 Thrive Assessment: Date of Thrive Assessment Date Thrive assessed 03/26/25 03/26/25 11:04 Currently or been in a relationship where the following occur: No concerns reported Const General: alert; No acute distress Eyes Conjunctivae: conjunctivae normal Resp Auscultation: clear to auscultation bilaterally Cardio Rate: regular rate Rhythm: regular rhythm GI Inspection: Yes normal to inspection Extrem General: Yes normal to inspection and No edema Coding Level of Care Code Est Pt Level 4 (70239) Complex EM visit Add On G2211 Diagnoses Fatty liver K76.0 Colon cancer screening Z12.11 Hypercholesterolemia E78.00 Blood pressure elevated without history of HTN R03.0 Obesity (BMI 30-39.9) E66.9 Assessment & Plan Assessment & Plan (1) Fatty liver: Code(s): K76.0 - Fatty (change of) liver, not elsewhere classified Category: Medical Plan: Low-fat diet and exercise patient has lost weight 4 lb (2) Colon cancer screening: Code(s): Z12.11 - Encounter for screening for malignant neoplasm of colon Category: Medical (3) Hypercholesterolemia: Code(s): E78.00 - Pure hypercholesterolemia, unspecified Category: Medical Plan: Avoid fried foods, chicken skin, eggs, butter margarine, pastries and meat. Be it pork or beef they have a lot of cholesterol LDL goal of less than 130 and triglyceride of less than 150 (4) Blood pressure elevated without history of HTN: Code(s): R03.0 - Elevated blood-pressure reading, without diagnosis of hypertension Category: Medical Plan: Patient is advised to continue monitoring blood pressure. Patient states has not been able to sleep good and had to schulte coming in and did drink caffeine. Advised to continue monitoring blood pressure and discussed importance of getting blood pressure under control (5) Obesity (BMI 30-39.9): Code(s): E66.9 - Obesity, unspecified Category: Medical Plan: Diet and exercise Plan History of Present Illness The patient is a 49-year-old male presenting for a follow-up visit. The patient has a history of Lyme disease and impaired glucose tolerance. He was last seen on December 28, 2024, and had a sleep study on March 04, 2025, which showed no sleep apnea. An abdominal ultrasound in January 2025 revealed hepatic steatosis with mild hepatomegaly. Blood work done on February 28, 2025, showed normal blood count, normal electrolytes, and mildly elevated renal function at 1.2. The patient's blood sugar and hemoglobin A1c were normal, and liver function tests improved compared to 2022. Cholesterol levels indicated high triglycerides at 186 mg/dL. The patient has been advised to follow a low-fat diet and exercise regimen, resulting in a weight loss of 4 pounds. He is also advised to monitor blood pressure regularly. Health Maintenance - Colon cancer screening with stool test discussed - Advised low-fat diet and regular exercise for weight management - Blood pressure monitoring advised Social History - Exercise: Engaged in regular physical activity as part of weight management plan - Nutrition: Following a low-fat diet Review of Systems - Sleep: Reports snoring, denies sleep apnea - Cardiovascular: Denies chest pain Physical Exam Results - Labs: Normal blood count, normal electrolytes, mildly elevated renal function at 1.2 - Labs: Normal blood sugar and hemoglobin A1c, improved liver function tests - Labs: High triglycerides at 186 mg/dL - Imaging: Abdominal ultrasound showing hepatic steatosis with mild hepatomegaly - Sleep Study: No sleep apnea detected Plan The patient is advised to continue with a low-fat diet and regular exercise to manage hepatic steatosis and obesity. Monitoring of blood pressure is recommended to manage hypertension, with an emphasis on lifestyle modifications to achieve target LDL and triglyceride levels. The patient is encouraged to maintain regular follow-ups to monitor renal function and ensure continued improvement in liver function tests. A colon cancer screening with a stool test has been discussed and will be sent to the patient. Patient was informed and verbally consented to the use of an ambient scribe for clinic note documentation during this visit. Discussion Notes I discussed with the patient the importance of maintaining a low-fat diet and regular exercise to manage hepatic steatosis and obesity. We talked about the need to monitor blood pressure regularly and the significance of lifestyle changes to achieve target cholesterol levels. I emphasized the importance of regular follow-ups to monitor renal function and liver health. We also discussed the colon cancer screening with a stool test, which will be sent to the patient. Patient Instructions - Continue with a low-fat diet and regular exercise. - Monitor blood pressure regularly. - Follow up regularly to check renal function and liver health. - Complete the colon cancer screening with the stool test when received. Orders: Referrals Cologuard Test Z12.11 - Encounter for screening for malignant neoplasm of colon
--- OUTSIDE RECORDS SUMMARY | 2025-03-26 12:34 | XMS_ITS | Encounter Summary ---
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 02/20/2025 10:21 AM EDT [facility] Clinical Information Pathology tooth #32 Radiolucent lesion associated with impacted tooth #32 Periapical granuloma Cyst #32 per jar 02/20/2025 10:21 AM EDT [facility] Gross Description A. Oral Cavity, [...] EDT Elio Leos DDS LAB PATHOLOGY ORDERABLES Fi nal Result [facility] [address] [place] [address], documented in this encounter Visit Diagnoses Diagnosis Granuloma and granuloma-like lesions of oral mucosa documented in this encounter
== END 2025-03-26 11:19 | disposition home or self-care (01) ==
LOC: HO.HMCH 11:00
PROVIDERS: PCP Internal Medicine; Visit Provider Internal Medicine
DX: E78.00 Pure hypercholesterolemia, unspecified (principal); E66.9 Obesity, unspecified; Z68.39 Body mass index [BMI] 39.0-39.9, adult; K76.0 Fatty (change of) liver, not elsewhere classified; Z12.11 Encounter for screening for malignant neoplasm of colon; R03.0 Elevated blood-pressure reading, without diagnosis of hypertension

== ENCOUNTER → 2025-03-26 10:59 | Outpatient (BNVA) | payer OTHER, SELFPAY | PROVIDERS: PCP Internal Medicine; Visit Provider Internal Medicine | DX: Z13.89 Encounter for screening for other disorder (principal) ==